=== PATIENT | male | born 1975 | race Caucasian/White ===

== ENCOUNTER 2022-03-19 14:22 | Emergency (ER) | payer MEDICAID, SELFPAY ==
[2022-03-19] VITALS (11 sets, daily range): BP systolic 104–147; BP diastolic 60–93; PULSE 69–89; RESP 18; TEMP 37.1; O2SAT 92–97; BMI 39.5
--- NOTE | 2022-03-19 15:46 | CRLHL7_ITS ---
For Patients: As a result of the Century Cures Act, medical imaging exams and procedure reports are released immediately into your electronic medical record. You may view this report before your referring provider. If you have questions, please contact your health care provider. Indication: Left-sided chest pain Technique: Chest 1 view Comparison: Chest x-ray 04/04/2021 Findings/Impression: Cardiovascular and mediastinum: Heart size and vasculature are normal in caliber and appearance. Lungs and pleural space: No pleural effusion or pneumothorax. Discoid atelectasis left lung base. Bones and soft tissues: No acute findings. Dictated by Pedro Dimas MD @ 03/19/2022 5:32:39 PM (Electronically Signed)
[2022-03-19 16:13] LABS: Basophils Absolute Auto 0.01 K/uL (0.00-0.30); Basophils Percent Auto 0.1 % (0.0-3.0); Eosinophils Absolute Auto 0.05 K/uL (0.00-0.50); Eosinophils Percent Auto 0.6 % (0.0-7.0); Hematocrit 39.5 % (37.0-53.0); Hemoglobin* 13.8 gm/dL (13.5-17.5); Lymphocytes Percent Auto 18.9 % (20-44); Mean Corpuscular HGB Conc 35 gm/dL (32-36); Mean Corpuscular Hemoglobin 31 pg (26-34); Mean Corpuscular Volume 87 fL (80-100); Monocytes Percent Auto 6.1 % (0.0-11.0); Neutrophils Percent Auto 74.3 % (42.0-72.0); Platelet Count* 224 K/uL (140-440); RDW Coefficient of Variation % 12.4 % (11.5-15.5); Red Blood Count 4.52 m/uL (4.30-5.90); White Blood Count* 8.24 K/uL (4.50-11.00)
[2022-03-19 16:15] LABS: Slide Review Reflex No
[2022-03-19 16:25] LABS: Chloride* 103 mmol/L (96-114); Potassium* 4.2 mmol/L (3.6-5.1); Sodium* 136 mmol/L (135-149)
[2022-03-19 16:27] LABS: Creatinine* 0.9 mg/dL (0.5-1.5); Est. Creatinine Clearance* 97.11; Estimated Glomerular Filt Rate 105 ml/min
[2022-03-19 16:28] LABS: Blood Urea Nitrogen* 18 mg/dL (5-24); Carbon Dioxide* 26 mmol/L (20-32)
[2022-03-19 16:29] LABS: Calcium* 8.7 mg/dL (8.4-10.6); Glucose* 106 mg/dL (60-115)
[2022-03-19 16:31] LABS: C Reactive Protein* 0.9 mg/dL (0.5-1.0)
[2022-03-19 16:32] LABS: D Dimer Quantitative* < 0.27 ug/ml (0.00-0.50)
[2022-03-19 16:43] LABS: NT Pro B Type NatriureticPept* < 11 PG/mL (0-125); Troponin I* < 0.01 ng/mL (0.01-0.04)
--- NOTE | 2022-03-19 17:03 | ED.GENADULT ---
HPI - General Adult General Chief complaint: Extremity Pain/Injury, Upper Stated complaint: Left Chest Pain Time Seen by Provider: 03/19/22 15:06 History of Present Illness HPI narrative: 38-year-old man presenting to the emergency department with concern of left-sided chest pain. This has been present for about a week. Has gotten as high as maybe a 7/10. He demonstrates in the left anterior axillary line. It may be actually feels better when he takes a deep breath and pushes on. He called in today to the nurse line about it and spoke with a physician he says who recommended that he call an ambulance and go into the emergency department. He is presenting here for evaluation. 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 He had been waiting for the [employer] to call him back to address a potential problem with the window. He appears disappointed at that a customer escalated this matter to this level so quickly without his being able to yet intervene. Last year also he was in the ICU at the end of the year continuing into the beginning of this year with [facility]. He becomes tearful discussing his 's health in particular. Does have sleep apnea but does not use his machine. No personal history of cardiovascular disease. No family history of cardiovascular disease. He has not had recent cough and cold symptoms. I do note how he is rather congested during my initial evaluation. Said this seems to be related to head position and especially stress where suddenly his nose will congest. Related Data Home Medications Medication Instructions Recorded Confirmed No Known Home Medications 03/19/22 03/19/22 Allergies Allergy/AdvReac Type Severity Reaction Status Date / Time No Known Drug Allergies Allergy Verified 03/19/22 14:33 Review of Systems Status of ROS: Reports: 10 or more systems reviewed and unremarkable except as noted in History and below [facility] Social History Smoking Status: Former smoker Do you use any of these nicotine containing products: None Second hand tobacco smoke exposure: No How often do you have a drink containing alcohol: never How often do you have six or more drinks on one occasion: Never AUDIT-C Alcohol total score: 0 Non-prescribed substance use: denies use Exam Narrative: Exam Narrative: Mr. Tucker isvery pleasant. Seems subtly anxious though he is does not feel so. Does admit that it is a little hard for him to breathe right now given his congestion. I do appreciate congestion of the nasopharynx. There is no facial swelling erythema or tenderness. Oropharynx is thick posteriorly. There is no stridor. Mild edema of the nasal mucosa without pallor. Lungs are clear. There is no supraclavicular crepitus. Cardiovascular with regular rate and rhythm. Distant. Thick chest. Abdomen is soft obese. Extremities are without edema. Moving all extremities without difficulty with good strength. Examination of the chest with mildly reproducible discomfort in the left anterior axillary line adjacent to the pectoralis musculature. No axillary lymphadenopathy. Skin is warm and dry without rash Const: Vital Signs, click to edit/add: Vital Signs - 24 hr 03/19/22 14:29 03/19/22 15:11 03/19/22 16:15 Temperature 98.7 F Pulse Rate 76 Pulse Rate [Right Pulse Oximeter] 89 85 Respiratory Rate 18 Blood Pressure Blood Pressure [Ri ght Upper Arm] 147/93 H 121/82 Pulse Oximetry 97 95 94 Oxygen Delivery Me thod Room Air Room Air 03/19/22 16:30 03/19/22 16:32 03/19/22 16:33 Temperature Pulse Rate 77 72 82 Pulse Rate [Right Pulse Oximeter] Respiratory Rate Blood Pressure 104/60 Blood Pressure [Ri ght Upper Arm] Pulse Oximetry 95 96 96 Oxygen Delivery Me thod 03/19/22 17:00 03/19/22 17:02 03/19/22 17:30 Temperature Pulse Rate 72 69 73 Pulse Rate [Right Pulse Oximeter] Respiratory Rate Blood Pressure 107/67 Blood Pressure [Ri ght Upper Arm] Pulse Oximetry 93 92 94 Oxygen Delivery Me thod 03/19/22 17:31 03/19/22 17:32 Temperature Pulse Rate 69 85 Pulse Rate [Right Pulse Oximeter] Respiratory Rate Blood Pressure 109/73 Blood Pressure [Ri ght Upper Arm] Pulse Oximetry 95 97 Oxygen Delivery Me thod Documenting provider has reviewed patient's vital signs: yes Course Vital Signs Vital signs: Initial Vital Signs Temperature 98.7 F 03/19/22 14:29 Temperature Source Temporal Artery Scan 03/19/22 14:29 Pulse Rate 89 03/19/22 14:29 Respiratory Rate 18 03/19/22 14:29 Blood Pressure 147/93 H 03/19/22 14:29 Blood Pressure Mean 111 03/19/22 14:29 Blood Pressure Position Sitting 03/19/22 14:29 Pulse Oximetry 97 03/19/22 14:29 Oxygen Delivery Method 03/19/22 14:29 Vital Signs Temperature 98.7 F 03/19/22 14:29 Pulse Rate 89 03/19/22 14:29 Respiratory Rate 18 03/19/22 14:29 Blood Pressure 147/93 H 03/19/22 14:29 Pulse Oximetry 97 03/19/22 14:29 Oxygen Delivery Method 03/19/22 14:29 Temperature 98.7 F 03/19/22 14:29 Pulse Rate 85 03/19/22 17:32 Respiratory Rate 18 03/19/22 14:29 Blood Pressure 109/73 03/19/22 17:31 Pulse Oximetry 97 03/19/22 17:32 Oxygen Delivery Method 03/19/22 15:11 Medical Decision Making MDM Narrative Medical decision making narrative: I discussed with Mr. Orozco how I think that this is likely noncardiac given duration and somewhat reproducibility. I also suspect amplified by anxieties related to social stressors. After further discussion understandably he would like to proceed with further evaluation consideration of potential cardiac etiology. Labs were drawn. Chest x-ray as well. Monitored on funnel setter. No events on monitor. Chest x-ray reviewed by me looks to show some linear infiltrates/atelectatic aspect at the left low lung. Radiology over-read-- Findings/Impression: Cardiovascular and mediastinum: Heart size and vasculature are normal in caliber and appearance. Lungs and pleural space: No pleural effusion or pneumothorax. Discoid atelectasis left lung base. Bones and soft tissues: No acute findings. Lab Data Lab results reviewed: Yes I reviewed the patient's lab results Labs: Lab Results 03/19/22 03/19/22 03/19/22 Range/Units 15:49 16:00 16:00 WBC 8.24 (4.50-11.00) K/uL RBC 4.52 (4.30-5.90) m/uL Hgb 13.8 (13.5-17.5) gm/dL Hct 39.5 (37.0-53.0) % MCV 87 (80-100) fL MCH 31 (26-34) pg MCHC 35 (32-36) gm/dL RDW Coeff of Vu 12.4 (11.5-15.5) % Plt Count 224 (140-440) K/uL Neut % (Auto) 74.3 H (42.0-72.0) % Lymph % (Auto) 18.9 L (20-44) % E[place]ka % (Auto) 6.1 (0.0-11.0) % Eos % (Auto) 0.6 (0.0-7.0) % Baso % (Auto) 0.1 (0.0-3.0) % Neut # (Auto) 6.10 (1.7-7.0) K/uL Lymph # (Auto) 1.60 (0.90-2.90) K/uL [place] # (Auto) 0.50 (0.00-0.90) K/UL Eos # (Auto) 0.05 (0.00-0.50) K/uL Baso # (Auto) 0.01 (0.00-0.30) K/uL Abs Immat Gran (auto) 0.00 (0.00-0.30) K/uL Imm/Tot Granulo (auto) 0.0 % D-Dimer Quant (PE/DVT) (0.00-0.50) ug/ml Sodium (135-149) mmol/L Potassium (3.6-5.1) mmol/L Chloride (96-114) mmol/L Carbon Dioxide (20-32) mmol/L BUN (5-24) mg/dL Creatinine (0.5-1.5) mg/dL Estimated Creat Clear Estimated GFR ml/min Glucose (60-115) mg/dL Calcium (8.4-10.6) mg/dL Troponin I (0.01-0.04) ng/mL C-Reactive Protein Cancelled NT-Pro-B Natriuret Pep (0-125) PG/mL POC Troponin I 0.00 L (0.01-0.04) ng/ml 03/19/22 03/19/22 03/19/22 Range/Units 16:00 16:00 16:00 WBC (4.50-11.00) K/uL RBC (4.30-5.90) m/uL Hgb (13.5-17.5) gm/dL Hct (37.0-53.0) % MCV (80-100) fL MCH (26-34) pg MCHC (32-36) gm/dL RDW Coeff of Vu (11.5-15.5) % Plt Count (140-440) K/uL Neut % (Auto) (42.0-72.0) % Lymph % (Auto) (20-44) % E[place]ka % (Auto) (0.0-11.0) % Eos % (Auto) (0.0-7.0) % Baso % (Auto) (0.0-3.0) % Neut # (Auto) (1.7-7.0) K/uL Lymph # (Auto) (0.90-2.90) K/uL [place] # (Auto) (0.00-0.90) K/UL Eos # (Auto) (0.00-0.50) K/uL Baso # (Auto) (0.00-0.30) K/uL Abs Immat Gran (auto) (0.00-0.30) K/uL Imm/Tot Granulo (auto) % D-Dimer Quant (PE/DVT) < 0.27 (0.00-0.50) ug/ml Sodium 136 Cancelled (135-149) mmol/L Potassium 4.2 Cancelled (3.6-5.1) mmol/L Chloride 103 Cancelled (96-114) mmol/L Carbon Dioxide 26 Cancelled (20-32) mmol/L BUN 18 Cancelled (5-24) mg/dL Creatinine 0.9 Cancelled (0.5-1.5) mg/dL Estimated Creat Clear 97.11 Cancelled Estimated GFR 105 Cancelled ml/min Glucose 106 Cancelled (60-115) mg/dL Calcium 8.7 Cancelled (8.4-10.6) mg/dL Troponin I < 0.01 L (0.01-0.04) ng/mL C-Reactive Protein 0.9 NT-Pro-B Natriuret Pep < 11 (0-125) PG/mL POC Troponin I (0.01-0.04) ng/ml ECG Data Attestation: I personally reviewed and interpreted this ECG as follows: (Normal sinus rhythm. Partial right bundle-branch block rate of 84) Discharge Plan Discharge Clinical Impression: Sleep apnea, Chest pain Patient Disposition: Home, Self-Care Condition: Stable Additional Instructions: Best wishes with your customer and the struggles you and your are going through. I do think you could benefit from restarting use of your CPAP. As I understand it, it is for your good health. Inquire again with the medical supply place to see what is needed to either upgrade or replace your current machine and this might likely mean sending a message your doctor for a new prescription. I do think that stress/anxiety is amplifying the symptoms you have been having in your chest. You might discuss this also with your doctor with consideration for further workup. He can see my notes here. With a little food and for the next 5 days, you might consider taking naproxen 500 mg twice daily. Prescriptions: No Action No Known Home Medications Follow Up/Referrals: Ruiz Murray MD [Primary Care Provider] - Stand Alone Forms: [employer] Info Instructions
== END 2022-03-19 18:11 | disposition home or self-care (01) ==
PROVIDERS: Emergency Provider Family Medicine; PCP Family Medicine
DX: R07.89 Other chest pain (principal)
CPT/HCPCS: 36415; 71045; 80048; 83880; 84484; 85025; 85379; 86140; 93005; 99284; 99285

== ENCOUNTER 2024-09-16 14:45 | Emergency (ER) | payer MEDICAID, SELFPAY ==
[2024-09-16 14:57] VITALS: BP 127/79; PULSE 96; RESP 20; TEMP 37; O2SAT 96; BMI 43.2
--- NOTE | 2024-09-16 15:09 | ED.GENADULT ---
HPI - General Adult General Date Seen: 09/16/24 Chief complaint: Laceration/Wound Stated complaint: LAC on L arm Time Seen by Provider: 09/16/24 14:58 History of Present Illness HPI narrative: Patient is a 49-year-old male who was starting to work on his riding lawnmower, he says there was a piece of sharp steel and he cut his left forearm. He says the cut isn't very big but he was not entirely sure if he was up-to-date on his tetanus, he says he has a friend who also has diabetes and waited too long to get a wound looked at and lost his leg, he did not want to lose his arm so he decided to come in. Bleeding controlled, no complaints of numbness or loss of function. Related Data Home Medications ?Medication ?Instructions ?Recorded ?Confirmed No Known Home Medications 03/19/22 09/16/24 Allergies Allergy/AdvReac Type Severity Reaction Status Date / Time No Known Drug Allergies Allergy Verified 09/16/24 14:55 PFSH PFSH Social History Smoking Status: Former smoker Do you use any of these nicotine containing products: None Second hand tobacco smoke exposure: No How often do you have a drink containing alcohol: never How often do you have six or more drinks on one occasion: Never AUDIT-C Alcohol total score: 0 Non-prescribed substance use: denies use Exam Narrative: Exam Narrative: Vital signs reviewed In general, alert, very pleasant middle-age male. Extremities: Examination of the left forearm shows a couple of very superficial scratches and then 1 area about 1 cm in length where he has a deeper cut. Bleeding is controlled. Distal CMS is normal. Const: Vital Signs, click to edit/add: Vital Signs - 24 hr 09/16/24 14:57 Temperature 98.6 F Pulse Rate [Pulse Oximeter] 96 Respiratory Rate 20 Blood Pressure [Ri ght Upper Arm] 127/79 Pulse Oximetry 96 Oxygen Delivery Me thod Room Air Course Course ED Course: The edges of this come together nicely, and a felt that Dermabond would be a reasonable way to close this and he agreed. Procedure note: Wound was cleaned with saline, explored, no evidence of obvious foreign body. Closed using Dermabond with good result. No immediate complication. Most recent tetanus 2022, up-to-date. Vital Signs Vital signs: Initial Vital Signs Temperature 98.6 F 09/16/24 14:57 Temperature Source Temporal Artery Scan 09/16/24 14:57 Pulse Rate 96 09/16/24 14:57 Respiratory Rate 20 09/16/24 14:57 Blood Pressure 127/79 09/16/24 14:57 Blood Pressure Mean 95 09/16/24 14:57 Pulse Oximetry 96 09/16/24 14:57 Oxygen Delivery Method Room Air 09/16/24 14:57 Vital Signs Temperature 98.6 F 09/16/24 14:57 Pulse Rate 96 09/16/24 14:57 Respiratory Rate 20 09/16/24 14:57 Blood Pressure 127/79 09/16/24 14:57 Pulse Oximetry 96 09/16/24 14:57 Oxygen Delivery Method Room Air 09/16/24 14:57 Temperature 98.6 F 09/16/24 14:57 Pulse Rate 96 09/16/24 14:57 Respiratory Rate 20 09/16/24 14:57 Blood Pressure 127/79 09/16/24 14:57 Pulse Oximetry 96 09/16/24 14:57 Oxygen Delivery Method Room Air 09/16/24 14:57 Discharge Plan Discharge Clinical Impression: Laceration of left forearm Patient Disposition: Home, Self-Care Condition: Improved Instructions: Laceration (DC), Skin Adhesive Care (ED) Additional Instructions: Return if signs of infection. Otherwise, skin glue will fall off on its own generally speaking. If it does not over the next 10-14 days, you can use acetone like acetone nail [place] on a cotton ball to help soften the glue. Your last tetanus was in 2022, therefore you are up-to-date and do not need a tetanus shot today. Prescriptions: No Action No Known Home Medications Follow Up/Referrals: Ruiz Murray MD [Primary Care Provider] - Stand Alone Forms: [facility] Info Instructions
--- OUTSIDE RECORDS SUMMARY | 2024-09-16 17:56 | XMS_ITS | Encounter Summary ---
Author Organization [facility] Address [address] [address] Care Team Providers Care Recycling Crew Supervisor Name Role Phone Votel, Ruiz Bullock MD Primary Care Provider + Encounter Details Date Type Department Care Team (Late st Contact Info) Description 03/19/2013 Correspondence External to External, [place] [address] 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
--- OUTSIDE RECORDS SUMMARY | 2024-09-16 17:56 | XMS_ITS | Encounter Summary ---
Author Organization [facility] Address [address] [address] Care Team Providers Care Loom Fixer Name Role Phone Votel, Ruiz Bullock MD Primary Care Provider + Encounter Details Date Type Department Care Team (Late st Contact Info) Description 06/07/2012 Correspondence [facility] Radiology [address] [place] [id number] Radiology, Provider MRI SAFETY SHEET AND COMPATIBILITY FORM Social History Tobacco Use Types Packs/Day Years Used Date Smoking Tobacco: Never Assessed Sex and Gender Information Value Date Recorded Sex Assigned at Not on file Legal Sex Male 9:35 AM COLORIST DYER Gender Identity Not on file Sexual Orientation Not on file documented as of this encounter Progress Notes * RADIOLOGY, PROVIDER - 06/07/2012 12:00 AM CST RIST DYER documented in this encounter Plan of Treatment Not on file documented as of this encounter Visit Diagnoses Not on filedocumented in this encounter Care Teams Loom Fixer Relationship Specialty Start Date End Date Votel, Ruiz Bullock MD [facility], [place] [address] [place] [address] PCP - General Family Practice 01/31/13 documented as of this encounter
--- OUTSIDE RECORDS SUMMARY | 2024-09-16 17:56 | XMS_ITS | Clinical Summary ---
Author Organization [place] Address Formerly [facility] [place] [address] Care Team Providers Care Errand Runner Name Role Phone [facility], [facility] Primary Care Provider Allergies No known active allergies Medications fluticasone (FLONASE) 50 MCG/ACT nasal spray Buena 1 spray into both nostrils daily 11.1 mL 2023 Active fexofenadine-ps eudoePHEDrine (CROW-D) 60-120 MG 12 hr tablet Take 1 tablet by mouth 2 times daily 30 tablet 2023 Active Resolved Problems Problem Noted Date Diagnosed Date Resolved Date Lumbago 10/05/2012 12/19/2012 Pain in joint, shoulder region 10/05/2012 12/19/2012 Social History Tobacco Use Types Packs/Day Years Used Date Smoking Tobacco: Never Assessed Adolescent Education Answer Date Record ed Getting School Help Needed Not on file 06/24 Sex and Gender Information Value Date Recorded Sex Assigned at Not on file Legal Sex Male 10:11 AM CDT Gender Identity Not on file Sexual Orientation Not on file Last Filed Vital Signs Vital Sign Reading Time Taken Comments Blood Pressure 128/55 2023 9:00 AM FARM TRACTOR OPERATOR Pulse 62 2023 9:00 AM FARM TRACTOR OPERATOR Temperature 36.6 C (97.8 F) 2023 7:14 AM FARM TRACTOR OPERATOR Respiratory Rate 19 2023 7:14 AM FARM TRACTOR OPERATOR Oxygen Saturation 92% 2023 8:30 AM FARM TRACTOR OPERATOR Inhaled Oxygen Concentration - - Weight 117.9 kg (260 lb) 2023 6:36 AM FARM TRACTOR OPERATOR Height - - Body Mass Index - - Plan of Treatment Health Maintenance Due Date Last Done Comments ADVANCE CARE PLANNING 1973 ANNUAL REVIEW OF HM ORDERS 1973 CT COLONOGRAPHY 1973 FIT 1973 FLEX SIG 1973 sDNA (Cologuard) 1973 HIV SCREENING 1988 HEPATITIS C SCREENING 1991 HEPATITIS B IMMUNIZATION (1 of 3 - 19+ 3-dose series) 1992 LIPID 2013 ZOSTER IMMUNIZATION (1 of 2) 2023 YEARLY PREVENTIVE VISIT 12/01/2023 11/30/2022, 07/29 COVID-19 Vaccine ( season) 2024 11/30/2022, 08/07/2021, 07/17/2021 PHQ-2 (once per calendar year) 2024 INFLUENZA VACCINE (Season Ended) 2024 07/29/2020, 06/08/2012 DIABETES SCREENING 2026 2023 DTAP/TDAP/TD IMMUNIZATION (3 - Td or Tdap) 11/30/2032 11/30/2022, 06/08/2012, 06/07/2012, Additional history exists COLONOSCOPY 03/08/2033 03/08/2023 COLORECTAL CANCER SCREENING 03/08/2033 Pneumococcal Vaccine: 50+ Years Completed 11/30/2022 HPV IMMUNIZATION Aged Out No longer e ligible based on patient's age to complete this topic MENINGITIS IMMUNIZATION Aged Out No l onger eligible based on patient's age to complete this topic Procedures Procedure Name Priority Date/Time Associated Diagnosis Comments BASIC METABOLIC PANEL STAT 2023 7:26 AM FARM TRACTOR OPERATOR from Last 3 Months or Most Recently Relevant to Health Maintenance Results * (ABNORMAL) Basic metabolic panel (2023 7:26 AM FARM TRACTOR OPERATOR) Sodium 136 135 - 145 mmol/L 2023 7:54 AM FARM TRACTOR OPERATOR [facility] Comment:Reference intervals for this test were updated on 01/25/2023 to more accurately reflect our healthy population. There may be differences in the flagging of prior results with similar values performed with this method. Interpretation of those prior results can be made in the context of the updated reference intervals. Potassium 4.4 3.4 - 5.3 mmol/L 2023 7:54 AM [facility] Chloride 102 98 - 107 mmol/L 2023 7:54 AM [facility] Carbon Dioxide (CO2) 25 22 - 29 mmol/L 2023 7:54 AM [facility] Anion Gap 9 7 - 15 mmol/L 2023 7:54 AM [facility] Urea Nitrogen 14.7 6.0 - 20.0 mg/dL 2023 7:54 AM [facility] Creatinine 0.67 0.67 - 1.17 mg/dL 2023 7:54 AM [facility] GFR Estimate >90 >60 mL/min/1. 73m2 2023 7:54 AM [facility] Calcium 9.0 8.6 - 10.0 mg/dL 2023 7:54 AM [facility] Glucose 109(H) 70 - 99 mg/dL 2023 7:54 AM [facility] Blood BLOOD SPECIMEN / Unknown Venipuncture / Unknown 2023 7:26 AM FARM TRACTOR OPERATOR 2023 7:31 AM FARM TRACTOR OPERATOR Keshawn Lewis MD LAB - BLOOD ORDERABLES F inal Result LABORATORY [facility] [address] [facility] (1st floor, no room number) [place] [address], [facility] [phone] from Last 3 Months or Most Recently Relevant to Health Maintenance Insurance [facility] [employer] Care Teams Errand Runner Relationship Specialty Start Date End Date [facility], [facility] [address] [place] [address] PCP - General 06/24/23
--- OUTSIDE RECORDS SUMMARY | 2024-09-16 17:56 | XMS_ITS | Encounter Summary ---
Author Organization [facility] Address [address], [place] [address] Care Team Providers Care Delivery Stock Clerk Name Role Phone Votel, Ruiz Bullock MD Primary Care Provider + Encounter Details Date Type Department Care Team (Late st Contact Info) Description 12/14/2012 Correspondence [facility] [address] [place] [address] Paddy Sotelo MD LEFT SHOULDER ARTHROSCOPY Social History Tobacco Use Types Packs/Day Years Used Date Smoking Tobacco: Never Alcohol Use Standard Drinks/Week Comments No 0 (1 standard drink = 0.6 oz pur e alcohol) occ Sex and Gender Information Value Date Recorded Sex Assigned at Not on file Legal Sex Male 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
--- OUTSIDE RECORDS SUMMARY | 2024-09-16 17:56 | XMS_ITS | Encounter Summary ---
Author Organization [facility] Address [address] [address] Care Team Providers Care Pharmacy Delivery Driver Name Role Phone Votel, Ruiz Bullock MD Primary Care Provider + Encounter Details Date Type Department Care Team (Late st Contact Info) Description 08/07/[address] [facility] Radiology [address] [place] [address] Radiology, Provider MRI SAFETY SHEET AND COMPATIBILITY FORM Social History Tobacco Use Types Packs/Day Years Used Date Smoking Tobacco: Never Alcohol Use Standard Drinks/Week Comments Not Asked 0 (1 standard drink = 0.6 oz pur e alcohol) Sex and Gender Information Value Date Recorded Sex Assigned at Not on file Legal Sex Male 9:35 AM MOTOR ELECTRICIAN Gender Identity Not on file Sexual Orientation Not on file documented as of this encounter Progress Notes * [facility] RADIOLOGY, PROVIDER - 08/07/2012 12:00 AM CDT documented in this encounter Plan of Treatment Not on file documented as of this encounter Visit Diagnoses Not on filedocumented in this encounter Care Teams Pharmacy Delivery Driver Relationship Specialty Start Date End Date Votel, Ruiz Bullock MD [address] [address] PCP - General Family Practice 01/31/13 documented as of this encounter
--- OUTSIDE RECORDS SUMMARY | 2024-09-16 17:56 | XMS_ITS | Clinical Summary ---
Author Organization [facility] Address [address] [place] [id number] Care Team Providers Care Infantry Operations Specialist Name Role Phone Unavailable Primary Care Provider Unavailabl e Allergies Active Allergy Reactions Criticality Noted Date Comments Morphine Anxiety 11/29/2012 States he freaked Out Penicillins 09/20/2006 Medications Flovent HFA 110 mcg/actuation inhalerIndicati ons:Pneumonia due to COVID-19 virus,Wheezing INHALE 1 PUFF BY MOUTH TWICE DAILY 12 g 5 2 Active CPAPIndications :ARTHUR (obstructive sleep apnea) RESMED CPAP (E0601) machine for home use at pressure: 5-15cmw, Choice of mask (A7030 or A7034) w/full face cushion (A7031) x1/mo, nasal cushion (A7032) x2/mo, or nasal pillows (A7033) x 2/mo; Length of Need: 99 months; Frequency of use: Daily 1 Each 11 4 Active Active Problems Problem Noted Date Diagnosed Date Prediabetes 04/28/2021 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 Pneumonia due to COVID-19 virus 04/04/2021 ARTHUR 08/18/2010 AHi-16 07/29/2020 Resolved Problems Problem Noted Date Diagnosed Date Resolved Date Acute respiratory distress syndrome 04/28/2021 07/28/2021 Sacral back pain 07/29/2020 07/29/2020 ARTHUR 08/18/2010 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, positi onal and stage dependent 08/30/2010 07/29/2020 Immunizations Immunization Administration Dates Next Due COVID-19 vaccine (Reverbeo NTech 30mcg/0.3mL) 12YO+ BIVALENT PF, MDV 11/30/2022 COVID-19 vaccine (Reverbeo NTech 30mcg/0.3mL) 12YO+ MYLES-SUCROSE PF, MDV 08/07/2021,07/17/2021 Influenza, IIV3 (Age >=3 years) 06/08/2012 Influenza, IIV4 07/29/2020 MMR 01/15/2004 Pneumococcal Conj 20-valent (Prevnar 20) 023 Td (Age >=7 Years) 06/07/2012,01/15/2004 Td, Preservative Free (age >= 7 Years) Tdap 06/08/2012 Varicella Vaccine 02/11/2004,01/15/2004 Family History Medical History Relation Name Comments Good Health Father Good Health Mother Relation Name Status Comments Father Mother Social History Tobacco Use Types Packs/Day Years Used Date Smoking Tobacco: Never Smokeless Tobacco: Never Tobacco Cessation:Counseling Given: Yes Alcohol Use Standard Drinks/Week Comments Yes 0 (1 standard drink = 0.6 oz pur e alcohol) rarely PHQ-2 Answer Date Recorded PHQ-2 TOTAL SCORE 4 11/30/2022 Social Connections Answer Date Recorded Do you often feel lonely or isolated from those around you? 0 10/17/2023 Financial Resource Strain Answer Date R ecorded Difficulty of Paying Living Expenses 3 10/17/2023 Difficulty of Paying Living Expenses Not on file 10/17/2023 Food Insecurity Answer Date Recorded Do you worry your food will run out before you are able to buy more? 1 10/17/2023 Transportation Needs Answer Date Record ed Does lack of transportation keep you from medica l appointments? 1 10/17/2023 Does lack of transportation keep you from work, meetings or getting things that you need? 1 10/17/2023 Housing Stability Answer Date Recorded What is your housing situation today? 1 10/17/2023 Utilities Answer Date Recorded Do you have trouble paying f or utilities (for example, heat, electricity, water, phone)? 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 Not on file Not on file Obstetrics History Last Filed Vital Signs Vital Sign Reading Time Taken Comments Blood Pressure 121/79 12/28/2023 4:01 PM CDT Pulse 87 12/28/2023 4:01 PM CDT Temperature 36.8 C (98.2 F) 11/30/2022 8:10 AM CDT Respiratory Rate 14 03/08/2023 8:44 AM SUBWAY TRAIN DRIVER Oxygen Saturation 95% 12/28/2023 4:01 PM CDT Inhaled Oxygen Concentration - - Weight 125.3 kg (276 lb 3.2 oz) 12/28/2023 4:01 PM CDT Height 169.6 cm (5' 6.77) 12/28/2023 4:01 PM CD T Body Mass Index 43.56 12/28/2023 4:01 PM CDT Plan of Treatment Health Maintenance Due Date Last Done Comments Depression screening for age 12+ 1985 HIV for age 15-65 1988 Hepatitis C screening for ag e 18-79 1991 Hepatitis B series for Diabe omhit (1 of 3 - 19+ 3-dose series) 1992 Zoster (shingles) series for age 50+ (1 of 2) 2023 COVID-19 vaccine series ( season) 2024 11/30/2022, 08/07/2021, 07/17/2021 BMI (ht and wt on same day) for age 18+ 12/27/2024 12/28/2023, 11/30/2022, 07/28/2021, Additional history exists Influenza Vaccine (Season Ended) 2024 07/30/19 21, 06/08/2012 Lipids for age 45-75 12/01/2027 11/30/2022, 07/28/2021, 07/29/2020 Tetanus booster 11/30/2032 11/30/2022, 10/2012, 06/07/2012, Additional history exists Colonoscopy through age 75 03/08/203303/08, 03/08/2023, 03/08/2023 Tdap Completed 06/08/2012 Pneumococcal series for age 50+ Completed Procedures Procedure Name Priority Date/Time Associated Diagnosis Comments COLONOSCOPY SCREENING Routine 03/08/2023 7:18 AM SUBWAY TRAIN DRIVER Screening for colon cancer LIPID PANEL W REFLEX MEASURED LDL Routine 11/30/2022 8:03 AM CDT Lipid screening from Last 3 Months or Most Recently Relevant to Health Maintenance Results * COLONOSCOPY (03/08/2023 7:41 AM SUBWAY TRAIN DRIVER) 03/08/2023 7:41 AM SUBWAY TRAIN DRIVER Narrative Transcriptions Reji Urbano MD - 03/08/2023 8:28 AM CST Patient Name: Cody Orozco Procedure Date: 03/08/2023 Gender: Male Date of : 1975 Admit Type: Outpatient Procedure: Colonoscopy Proceduralist: eRji Urbano MD , Radha Boles (Nurse), Christina Bates RN (Nurse) Referring MD: Ruiz Murray Indications/Pre-Op Diagnosis: Screening for colorectal malignant neoplasm, This is the patient's first colonoscopy Medications: Fentanyl 100 micrograms IV, Midazolam 4 mgIV, The level of sedation administered wasmoderate Procedure Description: The patient had risks, benefits and alternatives explained to andgave informed consent. The patient had a stable cardiopulmonary status and judged an adequate candidate for conscious sedation. The endoscope [id number] was passed through the anus andadvanced to the cecum, identified by appendiceal orifice and ileocecal valve.The colonoscopy was performed without difficulty. The patient toleratedthe procedure well. The quality of the bowel preparation was good. The ileocecal valve, appendiceal orifice, and rectum were photographed. Complications: No immediate complications. Estimated Blood Loss & Specimen: Estimated blood loss: none. Specimen collected - None Findings: The perianal and digital rectal examinations were normal. The entire examined colon appeared normal. Impressions/Post-Op Diagnosis: - The entire examined colon is normal. - No specimens collected. Recommendation: - Patient has a contact number available for emergencies. The signsand symptoms of potential delayed complications were discussed with the patient. Return to normal activities tomorrow. Written discharge instructions were provided to the patient. - Resume previous diet. - Continue present medications. - Repeat colonoscopy in 10 years for screening purposes. Moderate Sedation: A time out was performed before the procedure. Moderate (conscious) sedation was administered by the endoscopy nurse and supervised bythe endoscopist. The following parameters were monitored: oxygensaturation, heart rate, blood pressure, EKG, CO2, respiratory rate, adequacy of pulmonary ventilation and reponse to care. Please refer to the patient's medical record flowsheets and nursing notes for moderate sedation details. Total physician intraservice time was 15 minutes. Reji Urbano MD 03/08/2023 8:28:23 AM This report has been signed electronically. Note Initiated On: 03/08/2023 7:41 AM Procedure Code(s): --- Professional --- 61118, Colonoscopy, flexible; diagnostic, including collection of specimen(s) bybrushing or washing, when performed (separateprocedure) Diagnosis Code(s): --- Professional --- Z12.11, Encounter for screening formalignant neoplasm of colon CPT copyright 2021 [employer]. All rights reserved. The codes documented in this report are preliminary and upon lamination technician reviewmay be revised to meet current compliance requirements. Scope In: 8:04:58 AM Scope Withdrawal Time 0 hours 7 minutes 14 seconds Scope Out: 8:15:19 AM us Reji Urbano MD PROCEDURE ORD Final Res ult * (ABNORMAL) LIPID PANEL W REFLEX MEASURED LDL (11/30/2022 8:03 AM CDT) CHOLESTEROL,TOTAL 211(H) 100 - 199 mg/dL 11/30/2022 4:55 PM CDT [facility] Comment: Cholesterol, Total Reference Ranges Desirable <200 mg/dL Borderline 200-239 mg/dL High >=240 mg/dL TRIGLYCERIDES 195(H) <150 mg/dL 11/30/2022 4:55 PM CDT [facility] HDL CHOLESTEROL 43 >40 mg/dL 4:55 PM CDT [facility] NON-HDL CHOLESTEROL 168(H) <145 mg/dl 11/30/2022 4:55 PM CDT [facility] CHOL/HDL RATIO 4.91(H) <4.50 11/30/2022 4:55 PM CDT [facility] LDL CHOLESTEROL 129 <=130 mg/dL 11/30/2022 4:55 PM CDT [facility] VLDL CHOLESTEROL 39(H) <=30 mg/dL 11/30/2022 4:55 PM CDT [facility] PROVIDER ORDERED STATUS RANDOM 11/30/2022 4:55 PM CDT [facility] Blood BLOOD SPECIMEN / Unknown Venipuncture / Unknown 11/30/2022 8:03 AM CDT 11/30/2022 8:05 AM CDT us Ruiz Murray MD CHEMISTRY Final Re sult [facility] [address] [place] [address], [place] from Last 3 Months or Most Recently Relevant to Health Maintenance [place] [address] [place] [address] [employer]
--- OUTSIDE RECORDS SUMMARY | 2024-09-16 17:56 | XMS_ITS | Encounter Summary ---
Author Organization [facility] Address [address], [place] [address] Care Team Providers Care Operational Risk Analyst Name Role Phone Votel, Ruiz Bullock MD Primary Care Provider + Encounter Details Date Type Department Care Team (Late st Contact Info) Description 08/01/2012 Correspondence External to External, [place] [address] [employer]OL[employer] APT REPORT Social History Tobacco Use Types Packs/Day Years Used Date Smoking Tobacco: Never Alcohol Use Standard Drinks/Week Comments Not Asked 0 (1 standard drink = 0.6 oz pur e alcohol) Sex and Gender Information Value Date Recorded Sex Assigned at Not on file Legal Sex Male 9:35 AM BUILDING SPECIALIST Gender Identity Not on file Sexual Orientation Not on file documented as of this encounter Progress Notes * External, Provider - 08/01/2012 12:00 AM CDT documented in this encounter Plan of Treatment Not on file documented as of this encounter Visit Diagnoses Not on filedocumented in this encounter Care Teams Operational Risk Analyst Relationship Specialty Start Date End Date Votel, Ruiz Bullock MD [address] [phone] PCP - General Family Practice 01/31/13 documented as of this encounter
--- OUTSIDE RECORDS SUMMARY | 2024-09-16 17:56 | XMS_ITS | Encounter Summary ---
Author Organization [facility] Address [address] [place] [address] Care Team Providers Care Inker And Opaquer Name Role Phone Votel, Ruiz Bullock MD Primary Care Provider + Encounter Details Date Type Department Care Team (Late st Contact Info) Description 12/08/2012 Correspondence Specialty Center [address] [facility] [address] [facility] [place], [place] [id number] Jarett Tanner MD [address] [place] [address] HEALTH CARE PROVIDER REPORT Social History Tobacco Use Types Packs/Day Years Used Date Smoking Tobacco: Never Alcohol Use Standard Drinks/Week Comments No 0 (1 standard drink = 0.6 oz pur e alcohol) occ Sex and Gender Information Value Date Recorded Sex Assigned at Not on file Legal Sex Male 9:35 AM GUEST RELATIONS EXECUTIVE Gender Identity Not on file Sexual Orientation Not on file documented as of this encounter Progress Notes * Jarett Tanner MD - 12/08/2012 12:00 AM CDT documented in this encounter Plan of Treatment Not on file documented as of this encounter Visit Diagnoses Not on filedocumented in this encounter Care Teams Inker And Opaquer Relationship Specialty Start Date End Date Votel, Ruiz Bullock MD [address] [phone] PCP - General Family Practice 01/31/13 documented as of this encounter
--- OUTSIDE RECORDS SUMMARY | 2024-09-16 17:56 | XMS_ITS | Encounter Summary ---
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 Social History Tobacco Use Types Packs/Day Years Used Date Smoking Tobacco: Never Alcohol Use Standard Drinks/Week Comments No 0 (1 standard drink = 0.6 oz pur e alcohol) occ Sex and Gender Information Value Date Recorded Sex Assigned at Not on file Legal Sex Male 9:35 AM AGRICULTURAL 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
--- OUTSIDE RECORDS SUMMARY | 2024-09-16 17:56 | XMS_ITS | Encounter Summary ---
Author Organization [facility] Address [address], [place] [address] Care Team Providers Care Activity Therapy Specialist Name Role Phone Votel, Ruiz Bullock MD Primary Care Provider + Encounter Details Date Type Department Care Team (Late st Contact Info) Description 06/07/2012 Correspondence None No Primary/Referring, Phy NOT APPROVED SPECIALTY CENTER Social History Tobacco Use Types Packs/Day Years Used Date Smoking Tobacco: Never Assessed Sex and Gender Information Value Date Recorded Sex Assigned at Not on file Legal Sex Male 9:35 AM ARTIST'S REPRESENTATIVE Gender Identity Not on file Sexual Orientation Not on file documented as of this encounter Progress Notes * No Primary/Referring, Phy - 06/07/2012 12:00 AM CST documented in this encounter Plan of Treatment Not on file documented as of this encounter Visit Diagnoses Not on filedocumented in this encounter Care Teams Activity Therapy Specialist Relationship Specialty Start Date End Date Votel, Ruiz Bullock MD [address] [phone] PCP - General Family Practice 01/31/13 documented as of this encounter
--- OUTSIDE RECORDS SUMMARY | 2024-09-16 17:56 | XMS_ITS | Encounter Summary ---
Author Organization [facility] Address [address], [place] [address] Care Team Providers Care Dot Etcher Apprentice Name Role Phone Votel, Ruiz Bullock MD Primary Care Provider + Encounter Details Date Type Department Care Team (Late st Contact Info) Description 11/23/2012 Correspondence External to External, [place] [address] LETTER CLAIM REPRESENTATION Social History Tobacco Use Types Packs/Day Years Used Date Smoking Tobacco: Never Alcohol Use Standard Drinks/Week Comments No 0 (1 standard drink = 0.6 oz pur e alcohol) occ Sex and Gender Information Value Date Recorded Sex Assigned at Not on file Legal Sex Male 9:35 AM PUBLICATIONS SALES REPRESENTATIVE Gender Identity Not on file Sexual Orientation Not on file documented as of this encounter Progress Notes * External, Provider - 11/23/2012 12:00 AM CDT documented in this encounter Plan of Treatment Not on file documented as of this encounter Visit Diagnoses Not on filedocumented in this encounter Care Teams Dot Etcher Apprentice Relationship Specialty Start Date End Date Votel, Ruiz Bullock MD [address] [phone] PCP - General Family Practice 01/31/13 documented as of this encounter
--- OUTSIDE RECORDS SUMMARY | 2024-09-16 17:56 | XMS_ITS | Encounter Summary ---
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
--- OUTSIDE RECORDS SUMMARY | 2024-09-16 17:56 | XMS_ITS | Encounter Summary ---
Author Organization [facility] Address [address] [address] Care Team Providers Care Nurse Discharge Name Role Phone Votel, Ruiz Bullock MD Primary Care Provider + Encounter Details Date Type Department Care Team (Late st Contact Info) Description 10/05/2012 Correspondence External to External, [place] [address] LETTER AUTH THE INJECTION Social History Tobacco Use Types Packs/Day Years Used Date Smoking Tobacco: Never Alcohol Use Standard Drinks/Week Comments No 0 (1 standard drink = 0.6 oz pur e alcohol) occ Sex and Gender Information Value Date Recorded Sex Assigned at Not on file Legal Sex Male 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
--- OUTSIDE RECORDS SUMMARY | 2024-09-16 17:56 | XMS_ITS | Clinical Summary ---
Author Organization [facility] Address [address], [place] [address] Care Team Providers Care Creative Resource Manager Name Role Phone Votel, Ruiz Bullock MD Primary Care Provider + Source Comments You are receiving this document as you are listed as the primary care provider,follow-up provider, or the patient has been referred to you for consultation.This is in compliance with the Medicare and[facility] EHR Incentive Program,which states Providers who transition their patient to another setting of careor provider of care or refers their patient to another provider of care shouldprovide summary care record for each transition of care or referral. [facility] Allergies No known active allergies Medications cyclobenzaprine (AKA FLEXERIL) 10 MG tabletIndicatio ns:HNP (herniated nucleus pulposus), lumbar (HRC),Sprain of lumbar region Take 1 Tab by mouth at bedtime as needed for Muscle Spasms. 30 Tab 0 3 Active Additional Information Patient not taking.Reported on 04/02/2020 naproxen (NAPROSYN) 500 MG tablet Take 1 Tab by mouth two times a day. 20 Tab 0 4 Active Additional Information Patient not taking.Reported on 04/02/2020 cyclobenzaprine (AKA FLEXERIL) 10 MG tablet Take 1 Tab by mouth daily at bedtime. 30 Tab 0 4 Active Additional Information Patient not taking.Reported on 04/02/2020 Active Problems Problem Noted Date Diagnosed Date Shoulder pain, left 12/26/2012 HNP (herniated nucleus pulposus), lumbar 013 Sprain of lumbar region 11/01/2012 Disorder of bursae and tendons in shoulder regio n 11/01/2012 Overview (01/30/2015): Epic Immunizations Immunization Administration Dates Next Due Flu Vac (3+ yrs) 06/08/2012 Tdap 06/08/2012 Social History Tobacco Use Types Packs/Day Years Used Date Smoking Tobacco: Never Smokeless Tobacco: Never Alcohol Use Standard Drinks/Week Comments No 0 (1 standard drink = 0.6 oz pur e alcohol) occ Sex and Gender Information Value Date Recorded Sex Assigned at Not on file Legal Sex Male 9:35 AM FIELD HEALTH 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 Gender Identity Not on file Sexual Orientation Not on file Last Filed Vital Signs Vital Sign Reading Time Taken Comments Blood Pressure 130/75 04/02/2020 3:13 PM FIELD HEALTH OFFICER Pulse 72 04/02/2020 3:13 PM FIELD HEALTH OFFICER Temperature 36.9 C (98.5 F) 04/02/2020 3:13 PM FIELD HEALTH OFFICER Respiratory Rate 14 04/02/2020 3:13 PM FIELD HEALTH OFFICER Oxygen Saturation 94% 12/14/2012 11:45 AM CDT Inhaled Oxygen Concentration - - Weight 106.6 kg (235 lb) 04/18/2013 8:05 AM FIELD HEALTH OFFICER Height 172.7 cm (5' 8) 04/18/2013 8:05 AM FIELD HEALTH OFFICER Body Mass Index 35.73 04/18/2013 8:05 AM FIELD HEALTH OFFICER Plan of Treatment Health Maintenance Due Date Last Done Comments Colon Cancer Screening Plan Due 1975 Hep C Screening (Preventive Services) 1975 PSA Screening Discussion 1975 HIV Screening (Preventive Services) 1989 Adult Preventive Visit 1991 HepB Vaccine (1) 1992 Cholesterol 2008 DTaP/Tdap/Td Vaccine (2 - Tdap) 06/08/2022 06/08/2012, 01/15/2004 Pneumococcal Vaccine 50+ Yrs (1 of 1 - PCV) 2023 Zoster/Shingles Vaccine (1 o f 2) 2023 COVID-19 Vaccine (1 - 2023-2 5 season) 2024 Influenza Vaccine (Season Ended) 2024 07/29/2020, 06/08/2012 HepA Vaccine Aged Out No longer eligi ble based on patient's age to complete this topic Hib Vaccine Aged Out No longer eligi ble based on patient's age to complete this topic IPV (Polio) Vaccine Aged Out No longe r eligible based on patient's age to complete this topic MCV4 Vaccine Aged Out No longer eligi ble based on patient's age to complete this topic Meningococcal B Vaccine Aged Out No l onger eligible based on patient's age to complete this topic Medical Devices Implanted Type Area Sugar Chipper Machine Operator Device Identifier Shelf Expiration Date Model / Serial / Lot Sut Elliott Peek Corkscrew 5.5m - [id number] Implanted:Qty: 1 on 12/14/2012 by Paddy Sotelo MD at [facility] DEVICE Left: SHOULDER [employer] Instr 08/14/2017 [id number] / / [id number] Insurance [facility] OUT OF STATE [facility] A [employer] Advance Directives * Full Code (Latest Code Status on File) Date Activated Date Inactivated Comments 06/07/2012 11:44 AM 06/08/2012 8:34 PM Care Teams Creative Resource Manager Relationship Specialty Start Date End Date Votel, Ruiz Bullock MD [address] [address] PCP - General Family Practice 01/31/13
--- OUTSIDE RECORDS SUMMARY | 2024-09-16 17:56 | XMS_ITS | Encounter Summary ---
Author Organization [facility] Address [address] [address] Care Team Providers Care Distributing Clerk Name Role Phone Votel, Ruiz Bullock MD Primary Care Provider + Encounter Details Date Type Department Care Team (Late st Contact Info) Description 10/05/2012 Correspondence External to External, [place] [address] LETTER UPDATE Social History Tobacco Use Types Packs/Day Years Used Date Smoking Tobacco: Never Alcohol Use Standard Drinks/Week Comments No 0 (1 standard drink = 0.6 oz pur e alcohol) occ Sex and Gender Information Value Date Recorded Sex Assigned at Not on file Legal Sex Male 9:35 AM DIRECTOR ADVANCED Gender Identity Not on file Sexual Orientation Not on file documented as of this encounter Progress Notes * External, Provider - 10/05/2012 12:00 AM CDT documented in this encounter Plan of Treatment Not on file documented as of this encounter Visit Diagnoses Not on filedocumented in this encounter Care Teams Distributing Clerk Relationship Specialty Start Date End Date Votel, Ruiz Bullock MD [address] [phone] PCP - General Family Practice 01/31/13 documented as of this encounter
--- OUTSIDE RECORDS SUMMARY | 2024-09-16 17:56 | XMS_ITS | Encounter Summary ---
Author Organization [facility] Address [address] [address] Care Team Providers Care Green Ware Caster Name Role Phone Votel, Ruiz Bullock MD Primary Care Provider + Encounter Details Date Type Department Care Team (Late st Contact Info) Description 10/25/2012 Consent for Procedure/Treatme nt [facility] INFORMED CONSENT RECORD Social History Tobacco Use Types Packs/Day Years Used Date Smoking Tobacco: Never Alcohol Use Standard Drinks/Week Comments No 0 (1 standard drink = 0.6 oz pur e alcohol) occ Sex and Gender Information Value Date Recorded Sex Assigned at Not on file Legal Sex Male 9: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
== END 2024-09-16 15:36 | disposition home or self-care (01) ==
PROVIDERS: Emergency Provider Emergency Medicine; PCP Family Medicine
DX: S51.812A Laceration without foreign body of left forearm, initial encounter (principal); W26.8XXA Contact with other sharp object(s), not elsewhere classified, initial encounter
CPT/HCPCS: 12001; 99282; 99284

== ENCOUNTER 2024-10-15 01:32 | Emergency (ER) | payer MEDICAID, SELFPAY ==
--- OUTSIDE RECORDS SUMMARY | 2024-10-15 01:34 | XMS_ITS | Encounter Summary ---
Author Organization [facility] Address [address] [address] Care Team Providers Care Housecleaner Name Role Phone Votel, Ruiz Bullock MD Primary Care Provider + Encounter Details Date Type Department Care Team (Latest Contact Info) Description 12/14/2012 Correspondence Orthopedics at [address] [place] [address] Paddy Sotelo MD LEFT SHOULDER ARTHROSCOPY Social History Tobacco Use Types Packs/Day Years Used Date Smoking Tobacco: Never Alcohol Use Standard Drinks/Week Comments No 0 (1 standard drink = 0.6 oz pur e alcohol) occ Sex and Gender Information Value Date Recorded Sex Assigned at Not on file Legal Sex Male 9:35 AM BUSINESS CONTINUITY GLOBAL DIRECTOR Gender Identity Not on file Sexual Orientation Not on file documented as of this encounter Plan of Treatment Not on file documented as of this encounter Visit Diagnoses Not on filedocumented in this encounter Care Teams Housecleaner Relationship Specialty Start Date End Date VotelRuiz MD [place], [place] [address] [place] [address] PCP - General Family Practice 01/31/13 documented as of this encounter
--- OUTSIDE RECORDS SUMMARY | 2024-10-15 01:34 | XMS_ITS | Encounter Summary ---
Author Organization [facility] Address [address] [address] Care Team Providers Care Credit Union Field Examiner Name Role Phone Votel, Ruiz Bullock MD Primary Care Provider + Encounter Details Date Type Department Care Team (Late st Contact Info) Description 08/07/2012 Correspondence [facility] Radiology [address] [place] [address] Radiology, Provider MRI SAFETY SHEET AND COMPATIBILITY FORM Social History Tobacco Use Types Packs/Day Years Used Date Smoking Tobacco: Never Alcohol Use Standard Drinks/Week Comments Not Asked 0 (1 standard drink = 0.6 oz pur e alcohol) Sex and Gender Information Value Date Recorded Sex Assigned at Not on file 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
--- OUTSIDE RECORDS SUMMARY | 2024-10-15 01:34 | XMS_ITS | Encounter Summary ---
Author Organization [facility] Address [address] [address] Care Team Providers Care Refrigeration Engine Operator Name Role Phone Votel, Ruiz Bullock MD Primary Care Provider + Encounter Details Date Type Department Care Team (Late st Contact Info) Description 11/23/2012 Correspondence External to External, [place] [address] LETTER CLAIM REPRESENTATION Social History Tobacco Use Types Packs/Day Years Used Date Smoking Tobacco: Never Alcohol Use Standard Drinks/Week Comments No 0 (1 standard drink = 0.6 oz pur e alcohol) occ Sex and Gender Information Value Date Recorded Sex Assigned at Not on file 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
--- OUTSIDE RECORDS SUMMARY | 2024-10-15 01:34 | XMS_ITS | Encounter Summary ---
Author Organization [facility] Address [address], [place] [address] Care Team Providers Care Aerial Photogrammetrist Name Role Phone Votel, Ruiz Bullock MD Primary Care Provider + Encounter Details Date Type Department Care Team (Late st Contact Info) Description 07/06/2013 Correspondence External to External, Provider [place] [address] NOTICE OF APPEARANCE OF RESISTOR TESTING MACHINE OPERATOR Social History Tobacco Use Types Packs/Day Years Used Date Smoking Tobacco: Never Alcohol Use Standard Drinks/Week Comments No 0 (1 standard drink = 0.6 oz pur e alcohol) occ Sex and Gender Information Value Date Recorded Sex Assigned at Not on file Legal Sex Male 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
--- OUTSIDE RECORDS SUMMARY | 2024-10-15 01:34 | XMS_ITS | Encounter Summary ---
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
--- OUTSIDE RECORDS SUMMARY | 2024-10-15 01:34 | XMS_ITS | Encounter Summary ---
Author Organization [facility] Address [address] [address] Care Team Providers Care Project Management Professor Name Role Phone Votel, Ruiz Bullock MD Primary Care Provider + Encounter Details Date Type Department Care Team (Late st Contact Info) Description 08/01/2012 Correspondence External to External, [place] [address] [employer] APT REPORT Social History Tobacco Use Types Packs/Day Years Used Date Smoking Tobacco: Never Alcohol Use Standard Drinks/Week Comments Not Asked 0 (1 standard drink = 0.6 oz pur e alcohol) Sex and Gender Information Value Date Recorded Sex Assigned at Not on file 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
--- OUTSIDE RECORDS SUMMARY | 2024-10-15 01:34 | XMS_ITS | Encounter Summary ---
Author Organization [facility] Address [address] [address] Care Team Providers Care Senior Pharmacy Technician Name Role Phone Votel, Ruiz Bullock MD [...] on file Legal Sex Male 9:35 AM TIME STUDY CLERK Gender Identity Not on file Sexual Orientation Not on file documented as of this encounter Progress Notes * No Primary/Referring, Phy - 01/18/2013 12:00 AM CDT documented in this encounter Plan of Treatment Not on file documented as of this encounter Visit Diagnoses Not on filedocumented in this encounter Care Teams Senior Pharmacy Technician Relationship Specialty Start Date End Date Votel, Ruiz Bullock MD [address] [phone] PCP - General Family Practice 01/31/13 documented as of this encounter
--- OUTSIDE RECORDS SUMMARY | 2024-10-15 01:34 | XMS_ITS | Encounter Summary ---
Author Organization [facility] Address [address] [address] Care Team Providers Care Balloon Artist Name Role Phone Votel, Ruiz Bullock MD [...] on file Legal Sex Male 9:35 AM MILLSTONE CLEANER Gender Identity Not on file Sexual Orientation Not on file documented as of this encounter Progress Notes * [facility], PROVIDER - 10/25/2012 12:00 AM CDT documented in this encounter Plan of Treatment Not on file documented as of this encounter Visit Diagnoses Not on filedocumented in this encounter Care Teams Balloon Artist Relationship Specialty Start Date End Date Votel, Ruiz Bullock MD [address] [address] PCP - General Family Practice 01/31/13 documented as of this encounter
--- OUTSIDE RECORDS SUMMARY | 2024-10-15 01:34 | XMS_ITS | Encounter Summary ---
Author Organization [facility] Address [address] [place] [address] Care Team Providers Care Casing Cooker Name Role Phone Votel, Ruiz Bullock MD Primary Care Provider + Encounter Details Date Type Department Care Team (Late st Contact Info) Description 12/08/2012 Correspondence [facility] [address] [facility] [place], [place] [id number] Jarett Tanner MD [address] [place] [address] HEALTH CARE PROVIDER REPORT Social History Tobacco Use Types Packs/Day Years Used Date Smoking Tobacco: Never Alcohol Use Standard Drinks/Week Comments No 0 (1 standard drink = 0.6 oz pur e alcohol) occ Sex and Gender Information Value Date Recorded Sex Assigned at Not on file Legal Sex Male 9:35 AM FINANCIAL SERVICES INTERN Gender Identity Not on file Sexual Orientation Not on file documented as of this encounter Progress Notes * Jarett Tanner MD - 12/08/2012 12:00 AM CDT documented in this encounter Plan of Treatment Not on file documented as of this encounter Visit Diagnoses Not on filedocumented in this encounter Care Teams Casing Cooker Relationship Specialty Start Date End Date Votel, Ruiz Bullock MD [address] [address] PCP - General Family Practice 01/31/13 documented as of this encounter
--- OUTSIDE RECORDS SUMMARY | 2024-10-15 01:34 | XMS_ITS | Encounter Summary ---
Author Organization [facility] Address [address], [place] [address] Care Team Providers Care Licensed Embalmer Name Role Phone Votel, Ruiz Bullock MD Primary Care Provider + Encounter Details Date Type Department Care Team (Late st Contact Info) Description 03/19/2013 Correspondence External to External, [place] [address] [facility] DEPT OF LABOR Social History Tobacco Use Types Packs/Day Years Used Date Smoking Tobacco: Never Alcohol Use Standard Drinks/Week Comments No 0 (1 standard drink = 0.6 oz pur e alcohol) occ Sex and Gender Information Value Date Recorded Sex Assigned at Not on file Legal Sex Male 9:35 AM ELECTRON BEAM PHOTO MASK TECHNICIAN Gender Identity Not on file Sexual Orientation Not on file documented as of this encounter Progress Notes * External, Provider - 03/19/2013 12:00 AM CST TRON BEAM PHOTO MASK TECHNICIAN documented in this encounter Plan of Treatment Not on file documented as of this encounter Visit Diagnoses Not on filedocumented in this encounter Care Teams Licensed Embalmer Relationship Specialty Start Date End Date Votel, Ruiz Bullock MD [address] [phone] PCP - General Family Practice 01/31/13 documented as of this encounter
--- OUTSIDE RECORDS SUMMARY | 2024-10-15 01:34 | XMS_ITS | Clinical Summary ---
Author Organization [facility] Address [facility] [place] [address] Care Team Providers Care Construction Site Manager Name Role Phone [facility], [facility] Primary Care Provider Allergies No known active allergies Medications fluticasone (FLONASE) 50 MCG/ACT nasal spray [place] 1 spray into both nostrils daily 11.1 [...] Comments Blood Pressure 128/55 2023 9:00 AM BACK WEDGER Pulse 62 2023 9:00 AM BACK WEDGER Temperature 36.6 C (97.8 F) 2023 7:14 AM BACK WEDGER Respiratory Rate 19 2023 7:14 AM BACK WEDGER Oxygen Saturation 92% 2023 8:30 AM BACK WEDGER Inhaled Oxygen Concentration - - Weight 117.9 kg (260 lb) 2023 6:36 AM BACK WEDGER Height - - Body Mass Index - - Plan of Treatment Health Maintenance Due Date Last Done Comments ADVANCE CARE PLANNING 1973 ANNUAL REVIEW OF HM ORDERS 1973 CT COLONOGRAPHY 1973 FIT 1973 FLEX SIG 1973 sDNA (Cologuard) 1973 HIV SCREENING 1988 HEPATITIS C SCREENING 1991 HEPATITIS B VACCINE (1 of 3 - 19+ 3-dose series) 1992 LIPID 2013 ZOSTER VACCINE (1 of 2) 2023 YEARLY PREVENTIVE VISIT 12/01/2023 11/30/2022, 07/29 COVID-19 VACCINE ( season) 2024 11/30/2022, 08/07/2021, 07/17/2021 PHQ-2 (once per calendar year) 2024 INFLUENZA VACCINE (Season Ended) 2024 07/29/2020, 06/08/2012 DIABETES SCREENING 2026 2023 DTAP/TDAP/TD VACCINE (3 - Td or Tdap) 11/30/2032 11/30/2022, 06/08/2012, 06/07/2012, Additional history exists COLONOSCOPY 03/08/2033 03/08/2023 COLORECTAL CANCER SCREENING 03/08/2033 PNEUMOCOCCAL VACCINE 50+ YEARS Completed 11/30/2022 HPV VACCINE Aged Out No longer eligi ble based on patient's age to complete this topic MENINGITIS VACCINE Aged Out No longer eligible based on patient's age to complete this topic Procedures Procedure Name Priority Date/Time Associated Diagnosis Comments BASIC METABOLIC PANEL STAT 2023 7:26 AM BACK WEDGER from Last 3 Months or Most Recently Relevant to Health Maintenance Results * (ABNORMAL) Basic metabolic panel (2023 7:26 AM BACK WEDGER) Sodium 136 135 - 145 mmol/L 2023 7:54 AM BACK WEDGER [facility] Comment:Reference intervals for this test were updated on 01/25/2023 to more accurately reflect our healthy population. There may be differences in the flagging of prior results with similar values performed with this method. Interpretation of those prior results can be made in the context of the updated reference intervals. Potassium 4.4 3.4 - 5.3 mmol/L 2023 7:54 AM [facility] Chloride 102 98 - 107 mmol/L 2023 7:54 AM [facility] Carbon Dioxide (CO2) 25 22 - 29 mmol/L 2023 7:54 AM [facility] Anion Gap 9 7 - 15 mmol/L 2023 7:54 AM [facility] Urea Nitrogen 14.7 6.0 - 20.0 mg/dL 2023 7:54 AM [facility] Creatinine 0.67 0.67 - 1.17 mg/dL 2023 7:54 AM [facility] GFR Estimate >90 >60 mL/min/1. 73m2 2023 7:54 AM [facility] Calcium 9.0 8.6 - 10.0 mg/dL 2023 7:54 AM [facility] Glucose 109(H) 70 - 99 mg/dL 2023 7:54 AM [facility] Blood BLOOD SPECIMEN / Unknown Venipuncture / Unknown 2023 7:26 AM BACK WEDGER 2023 7:31 AM BACK WEDGER Keshawn Lewis MD LAB - BLOOD ORDERABLES F inal Result LABORATORY [facility] Acute Care Lab [address] [facility] Lab (1st floor, no room number) [place] [address], [facility] [phone] from Last 3 Months or Most Recently Relevant to Health Maintenance Insurance [facility] [employer] Care Teams Construction Site Manager Relationship Specialty Start Date End Date Clinic, [facility] [address] [place] [address] PCP - General 06/24/23
--- OUTSIDE RECORDS SUMMARY | 2024-10-15 01:34 | XMS_ITS | Encounter Summary ---
Author Organization [facility] Address [address] [address] Care Team Providers Care Systems Admin Name Role Phone Votel, Ruiz Bullock MD Primary Care Provider + Encounter Details Date Type Department Care Team (Late st Contact Info) Description 10/05/2012 Correspondence External to External, [place] [address] LETTER AUTH THE INJECTION Social History Tobacco Use Types Packs/Day Years Used Date Smoking Tobacco: Never Alcohol Use Standard Drinks/Week Comments No 0 (1 standard drink = 0.6 oz pur e alcohol) occ Sex and Gender Information Value Date Recorded Sex Assigned at Not on file Legal Sex Male 9:35 AM CONDUIT BENDER Gender Identity Not on file Sexual Orientation Not on file documented as of this encounter Progress Notes * External, Provider - 10/05/2012 12:00 AM CDT documented in this encounter Plan of Treatment Not on file documented as of this encounter Visit Diagnoses Not on filedocumented in this encounter Care Teams Systems Admin Relationship Specialty Start Date End Date Votel, Ruiz Bullock MD [address] [phone] PCP - General Family Practice 01/31/13 documented as of this encounter
--- OUTSIDE RECORDS SUMMARY | 2024-10-15 01:34 | XMS_ITS | Clinical Summary ---
Author Organization [facility] Address [address] [address] Care Team Providers Care Weaver Axminster Name Role Phone Votel, Ruiz Bullock MD Primary Care Provider + Source Comments You are receiving this document as you are listed as the primary care provider,follow-up provider, or the patient has been referred to you for consultation.This is in compliance with the Medicare and[facility] EHR Incentive Program,which states Providers who transition [...] file Legal Sex Male 9:35 AM DIRECTOR ACUTE Gender Identity Not on file Sexual Orientation Not on file Last Filed Vital Signs Vital Sign Reading Time Taken Comments Blood Pressure 130/75 04/02/2020 3:13 PM DIRECTOR ACUTE Pulse 72 04/02/2020 3:13 PM DIRECTOR ACUTE Temperature 36.9 C (98.5 F) 04/02/2020 3:13 PM DIRECTOR ACUTE Respiratory Rate 14 04/02/2020 3:13 PM DIRECTOR ACUTE Oxygen Saturation 94% 12/14/2012 11:45 AM CDT Inhaled Oxygen Concentration - - Weight 106.6 kg (235 lb) 04/18/2013 8:05 AM DIRECTOR ACUTE Height 172.7 cm (5' 8) 04/18/2013 8:05 AM DIRECTOR ACUTE Body Mass Index 35.73 04/18/2013 8:05 AM DIRECTOR ACUTE Plan of Treatment Health Maintenance Due Date [...] this topic Medical Devices Implanted Type Area Brownell Operator Device Identifier Shelf Expiration Date Model / Serial / Lot Sut [place] [employer] Corkscrew 5.5m - [id number] Implanted:Qty: 1 on 12/14/2012 by Paddy Sotelo MD at [facility] Same Day Surgery DEVICE Left: SHOULDER [employer] Ar[employer] Instr 08/14/2017 [id number] / / [id number] Insurance [facility] OUT OF STATE [facility] A [employer] Advance Directives * Full Code (Latest Code Status on File) Date Activated Date Inactivated Comments 06/07/2012 11:44 AM 06/08/2012 8:34 PM Care Teams Weaver Axminster Relationship Specialty Start Date End Date Votel, Ruiz Bullock MD [address] [address] PCP - General Family Practice 01/31/13
--- OUTSIDE RECORDS SUMMARY | 2024-10-15 01:34 | XMS_ITS | Encounter Summary ---
Author Organization [facility] Address [address], [place] [address] Care Team Providers Care Vegetable Washing Machine Operator Name Role Phone Votel, Ruiz Bullock MD Primary Care Provider + Encounter Details Date Type Department Care Team (Late st Contact Info) Description 06/07/2012 Correspondence [facility] Radiology [address] [place] [address] Radiology, Provider MRI SAFETY SHEET AND COMPATIBILITY FORM Social History Tobacco Use Types Packs/Day Years Used Date Smoking Tobacco: Never Assessed Sex and Gender Information Value Date Recorded Sex Assigned at Not on file Legal Sex Male 9:35 AM BRAZING MACHINE SETTER Gender Identity Not on file Sexual Orientation Not on file documented as of this encounter Progress Notes * RADIOLOGY, PROVIDER - 06/07/2012 12:00 AM CST ING MACHINE SETTER documented in this encounter Plan of Treatment Not on file documented as of this encounter Visit Diagnoses Not on filedocumented in this encounter Care Teams Vegetable Washing Machine Operator Relationship Specialty Start Date End Date Votel, Ruiz Bullock MD [facility], [place] [address] [place] [address] PCP - General Family Practice 01/31/13 documented as of this encounter
--- OUTSIDE RECORDS SUMMARY | 2024-10-15 01:35 | XMS_ITS | Encounter Summary ---
Author Organization [facility] Address [address] [address] Care Team Providers Care Disintegrator Feeder Name Role Phone Votel, Ruiz Bullock MD Primary Care Provider + Encounter Details Date Type Department Care Team (Late st Contact Info) Description 10/05/2012 Correspondence External to External, [place] [address] LETTER UPDATE Social History Tobacco Use Types Packs/Day Years Used Date Smoking Tobacco: Never Alcohol Use Standard Drinks/Week Comments No 0 (1 standard drink = 0.6 oz pur e alcohol) occ Sex and Gender Information Value Date Recorded Sex Assigned at Not on file Legal Sex Male 9:35 AM INJECTION MOULDING MACHINE OPERATOR Gender Identity Not on file Sexual Orientation Not on file documented as of this encounter Progress Notes * External, Provider - 10/05/2012 12:00 AM CDT documented in this encounter Plan of Treatment Not on file documented as of this encounter Visit Diagnoses Not on filedocumented in this encounter Care Teams Disintegrator Feeder Relationship Specialty Start Date End Date Votel, Ruiz Bullock MD [address] [phone] PCP - General Family Practice 01/31/13 documented as of this encounter
--- OUTSIDE RECORDS SUMMARY | 2024-10-15 01:35 | XMS_ITS | Clinical Summary ---
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 Role Phone Unavailable Primary Care Provider [...] Immunization Administration Dates Next Due COVID-19 vaccine (Endologix NTech 30mcg/0.3mL) 12YO+ BIVALENT PF, MDV 11/30/2022 COVID-19 vaccine (Endologix NTech 30mcg/0.3mL) 12YO+ MYLES-SUCROSE PF, MDV 08/07/2021,07/17/2021 [...] on file Legal Sex Male 6:25 AM CLINICAL LIAISON Gender Identity Not on file Sexual Orientation [...] CDT Respiratory Rate 14 03/08/2023 8:44 AM CLINICAL LIAISON Oxygen Saturation 95% 12/28/2023 4:01 PM CDT Inhaled Oxygen Concentration - - Weight 125.3 kg (276 lb 3.2 oz) 12/28/2023 4:01 PM CDT Height 169.6 cm (5' 6.77) 12/28/2023 4:01 PM CD T Body Mass Index 43.56 12/28/2023 4:01 PM CDT Plan of Treatment Health Maintenance Due Date Last Done Comments HIV for age 15-65 1988 Hepatitis C screening for ag e 18-79 1991 Hepatitis B series for 19+ ( 1 of 3 - 19+ 3-dose series) 1992 Zoster (shingles) series for age 50+ (1 of 2) 2023 Depression screening for age 12+ 12/01/2023 11/30/2022, 11/30/2022, 07/29/2021, Additional history exists COVID-19 vaccine series ( season) 2024 11/30/2022, [...] 06/08/2012 Pneumococcal series for age 50+ Completed 3 Procedures Procedure Name Priority Date/Time Associated Diagnosis Comments COLONOSCOPY SCREENING Routine 03/08/2023 7:18 AM CLINICAL LIAISON Screening for colon cancer LIPID PANEL W REFLEX MEASURED LDL Routine 11/30/2022 8:03 AM CDT Lipid screening from Last 3 Months or Most Recently Relevant to Health Maintenance Results * COLONOSCOPY (03/08/2023 7:41 AM CLINICAL LIAISON) 03/08/2023 7:41 AM CLINICAL LIAISON Narrative Transcriptions Reji Urbano MD - 03/08/2023 8:28 AM CST Patient Name: Cody Orozco Procedure Date: 03/08/2023 Gender: Male Date of : 1975 Admit Type: Outpatient Procedure: Colonoscopy Proceduralist: Reji Urbano MD , Radha Boles (Nurse), Christina [...] adequate candidate for conscious sedation. The endoscope [id number] was passed through the anus andadvanced to [...] 7:41 AM Procedure Code(s): --- Professional --- 54212, Colonoscopy, flexible; diagnostic, including collection of specimen(s) bybrushing or washing, when performed (separateprocedure) Diagnosis Code(s): --- Professional --- Z12.11, Encounter for screening formalignant neoplasm of colon CPT copyright 2021 [employer]. All rights reserved. The codes documented in this report are preliminary and upon demolition expert reviewmay be revised to meet current compliance requirements. Scope In: 8:04:58 AM Scope Withdrawal Time 0 hours 7 minutes 14 seconds Scope Out: 8:15:19 AM us Reji Urbano MD PROCEDURE ORD Final Res ult * (ABNORMAL) LIPID PANEL W REFLEX MEASURED LDL (11/30/2022 8:03 AM CDT) CHOLESTEROL,TOTAL 211(H) 100 - 199 mg/dL 11/30/2022 4:55 PM CDT [facility] Comment: Cholesterol, Total Reference Ranges Desirable <200 mg/dL Borderline 200-239 mg/dL High >=240 mg/dL TRIGLYCERIDES 195(H) <150 mg/dL 11/30/2022 4:55 PM CDT [facility] HDL CHOLESTEROL 43 >40 mg/dL 4:55 PM CDT [facility] NON-HDL CHOLESTEROL 168(H) <145 mg/dl 11/30/2022 4:55 PM CDT [facility] CHOL/HDL RATIO 4.91(H) <4.50 11/30/2022 4:55 PM CDT [facility] LDL CHOLESTEROL 129 <=130 mg/dL 11/30/2022 4:55 PM CDT [facility] VLDL CHOLESTEROL 39(H) <=30 mg/dL 11/30/2022 4:55 PM CDT [facility] PROVIDER ORDERED STATUS RANDOM 11/30/2022 4:55 PM CDT [facility] Blood BLOOD SPECIMEN / Unknown Venipuncture / Unknown 11/30/2022 8:03 AM CDT 11/30/2022 8:05 AM CDT us Ruiz Murray MD CHEMISTRY Final Re sult [facility] [address] [place] [address], [place] from Last 3 Months or Most Recently Relevant to Health Maintenance Insurance [facility] [employer]
--- NOTE | 2024-10-15 01:37 | ED_ITS ---
HPI - Eye Problem General Time Seen by Provider: 01:37 Date Seen: 10/15/24 Chief complaint: Eye Problems Stated complaint: left eye pain Time Seen by Provider: 10/15/24 01:36 Source: patient Mode of arrival: ambulatory Limitations: no limitations History of Present Illness HPI Narrative: 49-year-old male who comes in today with left eye pain. Patient reports this s tarted last night. No known injury. Says the vision is blurry, very sensitive to light, feels like there is something in the eye. Does not wear contact lenses. Related Data Home Medications ?Medication ?Instructions ?Recorded ?Confirmed No Known Home Medications 03/19/2208/30 Allergies Allergy/AdvReac Type Severity Reaction Status Date / Time No Known Drug Allergies Allergy Verified 09/16/24 14:55 PFSH PFSH Social History Smoking Status: Former smoker Do you use any of these nicotine containing products: None Second hand tobacco smoke exposure: No How often do you have a drink containing alcohol: never How often do you have six or more drinks on one occasion: Never AUDIT-C Alcohol total score: 0 Non-prescribed substance use: denies use Exam Narrative: Exam Narrative: General: well nourished , NAD Head: Atraumatic and normocephalic ENT: External ears and external nose are normal Eyes: Conjunctival injection on the left with tearing, on fluorescein exam there is a small abrasion just medial to the iris Neck: Full spontaneous range of motion of the neck Lungs: No respiratory distress Musculoskeletal: No tenderness or deformity Neurologic: No gross focal neurologic deficits Skin: No rashes Psych: Mood and affect are appropriate Const: Vital Signs, click to edit/add: Vital Signs - 24 hr 10/15/24 01:39 Temperature 97.8 F Pulse Rate [Right Pulse Oximeter] 94 Respiratory Rate 16 Blood Pressure [Le ft Upper Arm] 124/89 Pulse Oximetry 94 Oxygen Delivery Me thod Room Air Course Course ED Course: Reviewed most recent emergency department visit from September 16 was was for a left forearm laceration. Patient presents today with left eye foreign body sensation, photophobia that he says started last night. On exam here, left conjunctival injection with small corneal abrasion just medial to the iris. Patient was started on erythromycin drops. He reports he has had problems in the past with eyelids currently in word causing irritation in the eye, he should follow up with Ophthalmology for this.. Vital Signs Vital signs: Initial Vital Signs Temperature 97.8 F 10/15/24 01:39 Temperature Source Temporal Artery Scan 10/15/24 01:39 Pulse Rate 94 10/15/24 01:39 Respiratory Rate 16 10/15/24 01:39 Blood Pressure 124/89 10/15/24 01:39 Blood Pressure Mean 100 10/15/24 01:39 Blood Pressure Position Sitting 10/15/24 01:39 Pulse Oximetry 94 10/15/24 01:39 Oxygen Delivery Method Room Air 10/15/24 01:39 Vital Signs Temperature 97.8 F 10/15/24 01:39 Pulse Rate 94 10/15/24 01:39 Respiratory Rate 16 10/15/24 01:39 Blood Pressure 124/89 10/15/24 01:39 Pulse Oximetry 94 10/15/24 01:39 Oxygen Delivery Method Room Air 10/15/24 01:39 Temperature 97.8 F 10/15/24 01:39 Pulse Rate 94 10/15/24 01:39 Respiratory Rate 16 10/15/24 01:39 Blood Pressure 124/89 10/15/24 01:39 Pulse Oximetry 94 10/15/24 01:39 Oxygen Delivery Method Room Air 10/15/24 01:39 Discharge Plan Discharge Clinical Impression: Corneal abrasion, Trichiasis Patient Disposition: Home, Self-Care Instructions: Corneal Abrasion (DC), Eyelid Surgery (DC) Additional Instructions: Use antibiotic ointment 3 times a day as needed, including right before bed. Follow-up with your eye doctor this week. Activity Level: No Restrictions Discharge Diet: Regular Prescriptions: No Action No Known Home Medications Follow Up/Referrals: Ruiz Murray MD [Primary Care Provider, Family Practice] Stand Alone Forms: [employer] Info Instructions
[2024-10-15 01:39] VITALS: BP 124/89; PULSE 94; RESP 16; TEMP 36.6; O2SAT 94; BMI 40.7
== END 2024-10-15 02:09 | disposition home or self-care (01) ==
LOC: ED 01:59
PROVIDERS: Emergency Provider Family Medicine; PCP Family Medicine
DX: S05.02XA Injury of conjunctiva and corneal abrasion without foreign body, left eye, initial encounter (principal); H02.0 Entropion and trichiasis of eyelid
CPT/HCPCS: 99283; A9270